=== PATIENT | male | born 1935 | race Caucasian/White ===

== ENCOUNTER → 2016-08-14 | Outpatient (CLI) | payer MEDICARE, OTHER ==
[~2016-08-14] MED LIST: AMINOPHYLLINE INJ/PF 250 MG/10 ML SDV IV ONE; REGADENOSON INJ 0.4 MG/5 ML DISP.SYRIN IV ONE
--- NOTE | 2016-08-14 18:52 | DRAGON STRESS TEST REPORT ---
INTRAVENOUS LEXISCAN CARDIOLITE STRESS TEST USING SINGLE PHOTON EMMISION COMPUTERIZED TOMOGRAPHIC. DATE OF PROCEDURE: August 14, 2016 INDICATION : Dyspnea CARDIAC RISK FACTORS: Hypertension, dyslipidemia RESTING EKG: Sinus rhythm, no Baseline ST segment changes noted. STRESS EKG: No significant changes noted with LexiScan bolus REASON FOR TERMINATION: Protocol. PROCEDURE REPORT: Baseline heart rate 92 beats per minute with blood pressure of 109/63. Patient had no significant complaints. Heart rate at 2 minutes post bolus 105 with a blood pressure of 111/74. 3 minutes post bolus heart rate 102 with blood pressure of 111/74. No significant EKG changes were noted. Patient had no significant complaints during the procedure or postprocedure. Patient injected with Aminophyllin 75 mg at 3 minutes or later after Lexiscan bolus. CONCLUSIONS: Normal EKG and hemodynamic response to IV LexiScan. NUCLEAR DATA: At rest the patient was given 14.56 millicuries of technetium 99 sestamibi injected intravenously. As per protocol rest gated SPECT images were obtained. Subsequently the patient was given intravenous LexiScan at a dose of 0.4 mg in 5 mL intravenously, followed by flush with normal saline. Subsequently the stress dose of 42.2 millicuries of technetium 99 sestamibi was injected intravenously. As per protocol stress gated images were obtained. NUCLEAR INTERPRETATION: Both raw and processed data were used for interpretation. Visual, qualitative, computer-generated quantitative data was used. There was good myocardial uptake of technetium compound. Motion artifact and soft tissue attenuations were noted. Increased visceral uptake was noted. Borderline decreased uptake was noted in the distal inferior wall in bulls eye images but is felt to be related to subtraction artifact, related to increased visceral uptake. No corresponding wall motion abnormalities were noted. No definitive areas of transient perfusion defect noted. No definitive areas of fixed perfusion defect or scars noted. EKG gated imaging showed LV EF at 65 %, rest and stress gated EF similar visually. T. I D. ratio was 1.10. Lung heart ratio noted to be within normal limits 0.36. No significant extracardiac and abnormal radiotracer activities were noted. RV free wall uptake was noted to be borderline increased. IMPRESSION: Also refer to comments under nuclear interpretation. Also test results needs to be interpreted in the context of pretest probability. 1. There is no definitive scintigraphic evidence of LexiScan induced myocardial ischemia. 2. There is no definitive scintigraphic evidence of myocardial infarction/scar. 3. EKG gated imaging shows left ejection fraction of approximately 65 %. 4. Clinical correlation requested as occasionally single vessel disease or balanced ischemia could be missed. In approximately 10% of the cases Lexiscan may not cause adequate vasodilatory stress. RECOMMENDATIONS: Aggressive risk factor modification, medical therapy. Clinical correlation with echocardiogram derived ejection fraction. Inability to exercise by itself can lead to increased cardiovascular event risks. Nicola Tenorio M.D., [facility] Tip Out Worker public health professor, Board certified in cardiovascular diseases, Nuclear cardiology, Echocardiography Cardiac CT and cardiac MRI Ph. [phone] [facility]
== END ==
LOC: RAD 08:09
PROVIDERS: ATTEND Internal Medicine Cardiovascular Disease
DX: R06.00 Dyspnea, unspecified (principal)
CPT/HCPCS: 93017; 78452; A9500; J2785; J0280; Q9969

== ENCOUNTER 2016-09-29 16:32 | Emergency (ER) | payer MEDICARE, OTHER ==
--- NOTE | 2016-09-29 17:53 | ER Document Report ---
ED Medical Screen (RME) - General Chief Complaint: Palpitations Stated Complaint: HEART RATE PROBLEM Time Seen by Provider: 09/29/16 17:50 Mode of Arrival: Wheelchair Information source: Patient TRAVEL OUTSIDE OF THE [place] IN LAST 30 DAYS: No - HPI Patient complains to provider of: elevated heart rate Notes: 09/29/16 17:51 Patient is an 81-year-old male who was sent to the emergency room by home health nurse for tachycardia, patient was recently hospitalized at [facility] and had bilateral knee replacements, during his preop exam 1 month ago he was discovered to have atrial fibrillation, to his knowledge he was not placed on any medication for control of this, he has no complaints at the time of evaluation, denies chest pain or shortness of breath, no lower extremity/calf pain, no fevers - Related Data Allergies/Adverse Reactions: No Known Allergies Allergy (Verified 09/29/16 17:16) Past Medical History - Past Medical History Cardiac Medical History: Reports: Hx Hypercholesterolemia, Hx Hypertension Renal/ Medical History: Denies: Hx Peritoneal Dialysis - Immunizations Hx Diphtheria, Pertussis, Tetanus Vaccination: Yes Physical Exam - Vital signs Vitals: Temp Pulse Resp BP Pulse Ox 98.1 F 117 H 20 126/82 H 97 09/29/16 17:15 09/29/16 17:15 09/29/16 17:15 09/29/16 17:15 09/29/16 17:15 Course - Vital Signs Vital signs: Temp Pulse Resp BP Pulse Ox 98.1 F 117 H 20 126/82 H 97 09/29/16 17:15 09/29/16 17:15 09/29/16 17:15 09/29/16 17:15 09/29/16 17:15
[2016-09-29 18:26] LABS: ABSOLUTE EOSINOPHILS # (AUTO) 0.1 10^3/uL (0.0-0.6); ABSOLUTE LYMPHOCYTES (AUTO) 1.3 10^3/uL (0.5-4.7); ABSOLUTE MONOCYTES (AUTO) 1.3 10^3/uL (0.1-1.4); BASOPHILS % (AUTO) 0.5 % (0-2); EOSINOPHILS % (AUTO) 1.1 % (0-6); HEMATOCRIT 31.8 % (37.9-51.0); HEMOGLOBIN 10.4 g/dL (13.5-17.0); HGB HCT DIFFERENCE -0.6; LYMPHOCYTES % (AUTO) 13.3 % (13-45); MEAN CORPUSCULAR HEMOGLOBIN 32.8 pg (27.0-33.4); MEAN CORPUSCULAR HGB CONC 32.7 g/dL (32.0-36.0); MEAN CORPUSCULAR VOLUME 100 fl (80-97); MONOCYTES % (AUTO) 13.4 % (3-13); RED BLOOD COUNT 3.17 10^6/uL (4.35-5.55); RED CELL DISTRIBUTION WIDTH 13.3 % (11.5-14.0); SEGMENTED NEUTROPHILS % (AUTO) 71.7 % (42-78); WHITE BLOOD COUNT 9.7 10^3/uL (4.0-10.5)
--- NOTE | 2016-09-29 18:42 | RADIOLOGY REPORT (SQ) ---
EXAM DESCRIPTION: CHEST PA/LAT COMPLETED DATE/TIME: 09/29/2016 6:28 pm REASON FOR STUDY: palpitations COMPARISON: None. NUMBER OF VIEWS: Two view. TECHNIQUE: Frontal and lateral radiographic views of the chest acquired. LIMITATIONS: None. FINDINGS: LUNGS AND PLEURA: No opacities, masses or pneumothorax. No pleural effusion. Attenuated bl ood vessels and flattened irineo-diaphragms. MEDIASTINUM AND HILAR STRUCTURES: No masses. No contour abnormalities. HEART AND VASCULAR STRUCTURES: Heart normal in size and contour. No evidence for failure. BONES: No acute findings. Degenerative changes in the spine. HARDWARE: None in the chest. OTHER: No other significant finding. IMPRESSION: COPD. NO ACUTE RADIOGRAPHIC FINDING IN THE CHEST. TECHNICAL DOCUMENTATION: JOB ID: [id number] [employer]- All Rights Reserved
[2016-09-29 18:45] LABS: ALANINE AMINOTRANSFERASE 41 U/L (21-72); ALBUMIN 3.1 g/dL (3.5-5.0); ALKALINE PHOSPHATASE 107 U/L (38-126); ANION GAP 9 (5-19); ASPARTATE AMINO TRANSFERASE 57 U/L (17-59); BILIRUBIN,DIRECT 0.3 mg/dL (0.0-0.4); BILIRUBIN,TOTAL 1.4 mg/dL (0.2-1.3); BLOOD UREA NITROGEN 21 mg/dL (7-20); CALCIUM 8.6 mg/dL (8.4-10.2); CARBON DIOXIDE 27 mmol/L (22-30); CHLORIDE 98 mmol/L (98-107); CREATINE KINASE 824 U/L (55-170); CREATININE RESULT 0.68 mg/dL (0.52-1.25); GLUCOSE 101 mg/dL (75-110); POTASSIUM 4.6 mmol/L (3.6-5.0); SODIUM 134.4 mmol/L (137-145)
[2016-09-29 18:51] LABS: PROTHROMBIN TIME 15.3 SEC (11.4-15.4)
[2016-09-29 18:52] LABS: PARTIAL THROMBOPLASTIN TIME 31.2 SEC (23.5-35.8)
--- NOTE | 2016-09-29 18:52 | EKG REPORT ---
SEVERITY:- ABNORMAL ECG - ATRIAL FIBRILLATION, V-RATE 87-136 VENTRICULAR PREMATURE COMPLEX : Confirmed by: Nicola Tenorio 29-Sep-2016 18:50:53
[2016-09-29 19:02] LABS: CREATINE KINASE MB 3.34 ng/mL (<4.55)
[2016-09-29 19:08] LABS: TROPONIN I < 0.012 ng/mL
[2016-09-29] MEDS ORDERED: METOPROLOL TARTRATE 25 MG TABLET PO ONE (21:09)
[2016-09-29] MEDS ORDERED: APIXABAN 5 MG TABLET PO ONE (21:28)
--- NOTE | 2016-09-29 21:29 | ER Document Report ---
ED General - General Chief Complaint: Palpitations Stated Complaint: HEART RATE PROBLEM Time Seen by Provider: 09/29/16 17:50 Mode of Arrival: Wheelchair Notes: Patient is an 81-year-old male with a past medical history of atrial fibrillation, recently started on Eliquis and metoprolol for this had stopped his metoprolol at home for the past 3-4 days due to concerns of mild hypotension while hospitalized who presents without symptoms but concerns for tachycardia. His home health nurse came out today, checked his vitals and noted a heart rate in the 120s. She instructed him to come to the emergency department. Patient himself denies any symptoms whatsoever. He denies chest pain, shortness of breath or palpitations. He has not contacted his primary care doctor regarding today's concerns. States last time he took metoprolol approximately 3-4 days ago. TRAVEL OUTSIDE OF THE [place] IN LAST 30 DAYS: No - Related Data Allergies/Adverse Reactions: No Known Allergies Allergy (Verified 09/29/16 17:16) Past Medical History - General Information source: Patient - Social History Smoking Status: Never Smoker Chew tobacco use (# tins/day): No Frequency of alcohol use: None Drug Abuse: None Lives with: Spouse/Significant other Family History: Reviewed & Not Pertinent Patient has suicidal ideation: No Patient has homicidal ideation: No - Past Medical History Cardiac Medical History: Reports: Hx Hypercholesterolemia, Hx Hypertension Renal/ Medical History: Denies: Hx Peritoneal Dialysis - Immunizations Hx Diphtheria, Pertussis, Tetanus Vaccination: Yes Review of Systems - Review of Systems Notes: Constitutional: Negative for fever. HENT: Negative for sore throat. Eyes: Negative for visual changes. Cardiovascular: Negative for chest pain. Respiratory: Negative for shortness of breath. Gastrointestinal: Negative for abdominal pain, vomiting or diarrhea. Genitourinary: Negative for dysuria. Musculoskeletal: Negative for back pain. Skin: Negative for rash. Neurological: Negative for headaches, weakness or numbness. 10 point ROS negative except as marked above and in HPI. Physical Exam - Vital signs Vitals: Temp Pulse Resp BP Pulse Ox 98.1 F 117 H 20 126/82 H 97 09/29/16 17:15 09/29/16 17:15 09/29/16 17:15 09/29/16 17:15 09/29/16 17:15 Interpretation: Tachycardic Notes: PHYSICAL EXAMINATION: GENERAL: Well-appearing, well-nourished and in no acute distress. HEAD: Atraumatic, normocephalic. EYES: Pupils equal round and reactive to light, extraocular movements intact, sclera anicteric, conjunctiva are normal. ENT: nares patent, oropharynx clear without exudates. Moist mucous membranes. NECK: Normal range of motion, supple without lymphadenopathy LUNGS: Breath sounds clear to auscultation bilaterally and equal. No wheezes rales or rhonchi. HEART: Irregularly irregular tachycardia without murmurs ABDOMEN: Soft, nontender, normoactive bowel sounds. No guarding, no rebound. No masses appreciated. EXTREMITIES: Normal range of motion, no pitting or edema. No cyanosis. NEUROLOGICAL: No focal neurological deficits. Moves all extremities spontaneously and on command. PSYCH: Normal mood, normal affect. SKIN: Warm, Dry, normal turgor, no rashes or lesions noted. Course - Re-evaluation Re-evalutation: 09/29/16 21:26 Patient presents with asymptomatic atrial fibrillation with rapid ventricular response after discontinuing the beta-samra postoperatively. Patient is supposed to be taking metoprolol but has not taken this for the past 3-4 days. I suspect a component of both beta-samra withdrawal as well as A. fib that requires beta-samra control. Patient has absolutely no symptoms to warrant hospitalization or beginning IV infusion of diltiazem or metoprolol. He will be given an oral dose of metoprolol and be discharged home with recommendations to continue his metoprolol as it has been prescribed by his business development engineer. Labs and x-ray obtained in triage are noted to be normal. At this time will discharge with return precautions and follow-up recommendations. Verbal discharge instructions given a the bedside and opportunity for questions given. Medication warnings reviewed. Patient is in agreement with this plan and has verbalized understanding of return precautions and the need for primary care follow-up in the next 24-72 hours. - Vital Signs Vital signs: Temp Pulse Resp BP Pulse Ox 98.1 F 117 H 36 H 127/60 H 97 09/29/16 17:15 09/29/16 17:15 09/29/16 21:32 09/29/16 21:32 09/29/16 21:32 - Laboratory Result Diagrams: 09/29/16 18:10 09/29/16 18:10 Laboratory results interpreted by me: 09/29/16 09/29/16 18:10 18:10 RBC 3.17 L Hgb 10.4 L Hct 31.8 L MCV 100 H Monocytes % 13.4 H Sodium 134.4 L BUN 21 H Total Bilirubin 1.4 H Creatine Kinase 824 H Total Protein 6.0 L Albumin 3.1 L - Diagnostic Test Radiology reviewed: Image reviewed, Reports reviewed Radiology results interpreted by me: 09/29/16 21:27 Chest x-ray: No acute infiltrate or pneumothorax - EKG Interpretation by Me Additional EKG results interpreted by me: 09/30/16 04:13 A. fib with rapid ventricular response. Rate 111. No ST elevations or depressions. QTC is 424. Discharge - Discharge Clinical Impression: Atrial fibrillation with rapid ventricular response Condition: Good Disposition: HOME, SELF-CARE Additional Instructions: Please take your beta-samra, metoprolol, as directed to prevent a rapid heart rate. Please return if you develop chest pain, shortness of breath, pass out, or have any other symptoms that are worrisome to you. Referrals: NIELS PACHECO MD [Primary Care Provider] - Follow up as needed
[2016-09-29 21:36] VITALS: BP 127/60
== END 2016-09-29 21:46 | disposition home or self-care (01) ==
LOC: ER 16:32
DX: I48.91 Unspecified atrial fibrillation (principal); R00.0 Tachycardia, unspecified; I10 Essential (primary) hypertension; Z98.890 Other specified postprocedural states
CPT/HCPCS: 93005; 99285; 36415; 82553; 82550; 85025; 85610; 85730; 80053; 84484; 71020; 93010; A9270 ×2